=== PATIENT | female | born 1950 | race African-American/Black ===

== ENCOUNTER 2018-05-30 21:31 | Emergency (ER) | payer MEDICARE ==
[2018-05-30 22:29] LABS: Bilirubin Negative (Negative); Blood, Urine Large (Negative); Clarity Clear (Clear); Glucose, Urine (Dipstick) Negative (Negative); Leukocyte Large (Negative); Nitrite Negative (Negative); Protein, Urine (Dipstick) Negative (Neg-Trace); RBC/HPF 21-50 HPF (0-3); Urobilinogen 0.2 mg/dL (0.2-1.0)
[2018-05-30 22:30] LABS: Bacteria/HPF Rare-Few HPF (None Seen)
[2018-05-30] MEDS ORDERED: Cephalexin 250 MG CAP ONE (22:36)
[2018-05-30] MEDS ORDERED: levETIRAcetam 500 MG TAB ONE (22:36)
== END 2018-05-30 22:52 | disposition home or self-care (01) ==
LOC: NAV ERS 21:31
DX: N39.0 Urinary tract infection, site not specified (principal); K21.9 Gastro-esophageal reflux disease without esophagitis; E78.5 Hyperlipidemia, unspecified; I10 Essential (primary) hypertension; J45.909 Unspecified asthma, uncomplicated; Z79.82 Long term (current) use of aspirin; Z79.899 Other long term (current) drug therapy
CPT/HCPCS: 81003; 81015; 99283

== ENCOUNTER 2019-06-22 09:54 | Outpatient (CLI) | payer MEDICARE ==
--- NOTE | 2019-06-22 10:22 | RAD ---
EXAM: Chest 2 views: HISTORY: Preoperative radiograph COMPARISON: 01/29/2019 FINDINGS: There is a normal-sized cardiomediastinal silhouette. There is no evidence of consolidation, mass, or pleural effusion. Scoliotic curvature the spine is seen. IMPRESSION: No evidence of acute cardiopulmonary disease
== END 2019-06-22 09:55 | disposition home or self-care (01) ==
LOC: NAV RAD 09:54
PROVIDERS: ATTEND Family Medicine
DX: Z01.818 Encounter for other preprocedural examination (principal)
CPT/HCPCS: 71046

== ENCOUNTER 2020-11-24 10:47 | Emergency (ER) | payer OTHER, SELFPAY ==
[2020-11-24] MEDS ORDERED: Aspirin Chewable 81 MG TAB ONE (11:22)
--- NOTE | 2020-11-24 11:45 | RAD ---
Chest AP view INDICATION: Shortness of breath COMPARISON: Prior exam dated June 22, 2019 FINDINGS: Lungs: The lungs are clear Cardiac silhouette: Stable cardiomegaly Pulmonary vasculature: Normal Pleural spaces: No pleural effusion or pneumothorax is demonstrated. Upper abdomen: No abnormality seen. Osseous structures: No acute osseous abnormality. Additional findings: None. IMPRESSION: No acute cardiopulmonary abnormality.
[2020-11-24 11:47] LABS: #Basophils 0.1 thou/uL (0.0-0.2); #Eosinphils 0.1 thou/uL (0.0-0.7); #Lymphocytes 1.6 thou/uL (1.20-3.40); #Monocytes 0.6 thou/uL (0.11-0.59); #Neutrophils 7.4 thou/uL (1.40-6.50); %Basophils 0.7 % (0.0-1.0); %Eosinophils 1.4 % (0.0-10.0); %Lymphocytes 16.3 % (21.0-51.0); %Monocytes 6.3 % (0.0-10.0); %Neutrophils 75.4 % (42.0-75.0); Hemoglobin 14.4 g/dL (12.0-16.0); Mean Corpuscular HGB CONC 32.3 g/dL (32.0-36.0); Mean Corpuscular Hemoglobin 27.3 pg (27.0-31.0); Mean Corpuscular Volume 84.5 fL (78.0-98.0); Platelet Count 380 thou/uL (130-400); RBC Distribution Width 13.3 % (11.5-14.5); White Blood Cell (WBC) Count 9.8 thou/uL (4.8-10.8)
[2020-11-24 11:54] LABS: ALT (SGPT) 18 U/L (8-55); AST (SGOT) 21 U/L (5-34); Albumin 4.2 g/dL (3.4-4.8); Alkaline Phosphatase 99 U/L (40-110); Anion Gap 14 mmol/L (10-20); BUN (Urea Nitrogen) 8 mg/dL (9.8-20.1); Bilirubin, Total 0.7 mg/dL (0.2-1.2); Calc. Creatinine Clearance 0 mL/min (70-130); Calcium 9.8 mg/dL (7.8-10.44); Carbon Dioxide 29 mmol/L (23-31); Chloride 98 mmol/L (98-107); Globulin 3.5 g/dL (2.4-3.5); Glucose 113 mg/dL (83-110); Potassium 3.5 mmol/L (3.5-5.1); Protein, Total 7.7 g/dL (6.0-8.3); Sodium 137 mmol/L (136-145)
== END 2020-11-24 13:30 | disposition short-term general hospital (02) ==
LOC: NAV ERS 10:47
DX: R07.89 Other chest pain (principal); R06.02 Shortness of breath; K21.9 Gastro-esophageal reflux disease without esophagitis; E78.5 Hyperlipidemia, unspecified; E78.00 Pure hypercholesterolemia, unspecified; Z79.82 Long term (current) use of aspirin; Z79.51 Long term (current) use of inhaled steroids; Z79.899 Other long term (current) drug therapy
CPT/HCPCS: 71045; 80053; 83735; 83880; 84484; 85025; 93005; 94760

== ENCOUNTER 2020-12-05 10:59 | Outpatient (CLI) | payer MEDICARE ==
--- NOTE | 2020-12-05 11:55 | RAD ---
Radiograph left hip 2 views: 12/05/2020 HISTORY: 70-year-old female with left hip pain. X-ray technologist's note: "Diagnosed with osteoarthritic changes" FINDINGS: There are moderate-sized subcapital osteophytes, which lower the sensitivity for the detection of imp acted subcapital fracture. No definite fracture is identified. Moderate osteophytosis at acetabulum. Mild to moderate central-me dial joint space narrowing. IMPRESSION: Moderate osteoarthrosis of left hip
--- NOTE | 2020-12-05 11:57 | RAD ---
EXAM: XR Pelvis AP STANDARD PROVIDED CLINICAL HISTORY: Arthritis COMPARISON: None FINDINGS: There is no evidence for fracture. 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 Osteophyte formation is seen about the left hip. Alignment appears otherwise anatomic. No lytic or blastic bony lesions are seen. IMPRESSION: Bilateral hip degenerative change, left greater than right.
--- NOTE | 2020-12-05 11:58 | RAD ---
EXAM: XR Hip Rt 2-3 View PROVIDED CLINICAL HISTORY: Arthritis COMPARISON: 05/16/2012 FINDINGS: There is mild axial hip joint space loss. There is no evidence for fracture or other acute osseous ab normality. Alignment appears anatomic. There is acetabular over coverage, which may predispose to femoral-acetabular impingement. IMPRESSION: Mild right hip degenerative change.
== END 2020-12-05 11:00 | disposition home or self-care (01) ==
LOC: NAV RAD 10:59
PROVIDERS: ATTEND Family Medicine
DX: M16.0 Bilateral primary osteoarthritis of hip (principal)
CPT/HCPCS: 72170

== ENCOUNTER 2023-11-02 14:20 | Emergency (ER) | payer OTHER, MEDICARE ==
[2023-11-02] MEDS ORDERED: Bacitracin 1 PK ONE (15:06)
== END 2023-11-02 15:18 | disposition home or self-care (01) ==
LOC: NAV ERS 14:20
DX: M25.572 Pain in left ankle and joints of left foot (principal); I10 Essential (primary) hypertension; J45.909 Unspecified asthma, uncomplicated
CPT/HCPCS: 99283

== ENCOUNTER 2025-08-27 19:09 | Emergency (ER) | payer MEDICARE, MEDICAID ==
[2025-08-27 21:00] LABS: #Basophils 0.1 thou/uL (0.0-0.2); #Eosinophils 0.0 thou/uL (0.0-0.7); #Lymphocytes 0.9 thou/uL (1.20-3.40); #Monocytes 0.9 thou/uL (0.11-0.59); #Neutrophils 16.2 thou/uL (1.40-6.50); %Basophils 0.5 % (0.0-1.0); %Eosinophils 0.0 % (0.0-10.0); %Lymphocytes 4.7 % (21.0-51.0); %Monocytes 5.0 % (0.0-10.0); %Neutrophils 89.8 % (42.0-75.0); Hematocrit 34.1 % (36.0-47.0); Hemoglobin 11.9 g/dL (12.0-16.0); Mean Corpuscular Hemoglobin 27.3 pg (27.0-31.0); Mean Corpuscular Volume 77.7 fl (78.0-98.0); Platelet Count 246 10x3/uL (130-400); Red Blood Cell (RBC) Count 4.38 mill/uL (4.20-5.40); White Blood Cell (WBC) Count 18.0 10x3/uL (4.8-10.8)
[2025-08-27 21:39] LABS: Anion Gap 13 mmol/L (10-20); BUN (Urea Nitrogen) 12 mg/dL (9.8-20.1); Calc. Creatinine Clearance 0 mL/min (70-130); Carbon Dioxide 28 mmol/L (23-31); Chloride 97 mmol/L (98-107); Potassium 3.4 mmol/L (3.5-5.1); Sodium 135 mmol/L (136-145)
[2025-08-27 21:40] LABS: ALT (SGPT) 10 U/L (Less than 34); AST (SGOT) 25 U/L (11-34); Albumin 3.8 g/dL (3.1-4.5); Alkaline Phosphatase 67 U/L (40-110); Bilirubin, Total 1.9 mg/dL (0.3-1.2); Calcium 9.2 mg/dL (7.8-10.44); Globulin 3.7 g/dL (2.4-3.5); Glucose 117 mg/dL (83-110)
[2025-08-27 23:43] LABS: CAUTI Indications for Culture Dysuria,urgency,freq; Glucose, Urine (Dipstick) Negative (Negative); Leukocyte Trace (Negative); Protein, Urine (Dipstick) 30 mg/dL (Neg-Trace); RBC/HPF 0-3 HPF (0-3); Specific Gravity, Urine 1.015 (1.005-1.030)
[2025-08-27 23:44] LABS: Bacteria/HPF Rare-Few HPF (None Seen); Urine Culture Reflex No No
== END 2025-08-28 00:15 | disposition home or self-care (01) ==
LOC: NAV ERS 19:09
DX: N39.0 Urinary tract infection, site not specified (principal); J06.9 Acute upper respiratory infection, unspecified
CPT/HCPCS: 71046; 80053; 81001; 82550; 83880; 85025; 85379; 87400; 87426; 96374; J2919; J7030